=== PATIENT | male | born 1985 | race Caucasian/White ===

== ENCOUNTER 2024-10-26 22:26 | Emergency (ER) | payer BC ==
[2024-10-26] MEDS ORDERED: ASPIRIN 81 MG CHEWABLE TABLET ONE (23:05)
[2024-10-26 23:43] LABS: Anion Gap 8.5 mEq/L (5.0-15.0); BUN Blood Urea Nitrogen 9 mg/dL (7-18); Bicarbonate 29 mEq/L (21-32); Glomerular Filtration Rate 80 ml/min (=/>90); Glucose Level 95 mg/dL (74-106); Magnesium 2.2 mg/dL (1.6-2.4); Potassium 3.5 mEq/L (3.5-5.1); Sodium Level 140 mEq/L (136-145)
[2024-10-26 23:57] LABS: Absolute Basophils 0.1 K/uL (0-0.5); Absolute Eosinophils 0.3 K/uL (0-0.5); Absolute Lymphocytes (CBC) 3.5 K/uL (0.7-4.9); Absolute Monocytes 0.8 K/uL (0.1-1.3); Absolute Neutrophil 4.2 K/uL (1.8-8.0); Basophils % 0.8 % (0-1.3); Eosinophils % 3.7 % (0-4.4); Hematocrit 45.2 % (39.6-49.0); Hemoglobin 15.5 g/dL (13.6-17.9); Lymphocytes % 39.4 % (15.3-44.8); MCH 31.3 pg (27.0-35.0); MCHC 34.4 g/dL (32.0-36.0); MPV 7.3 fL (7.6-11.3); Neutrophils % 47.1 % (41.7-73.7); Nucleated RBC Absolute Count 0.1 (0-0); Nucleated Red Blood Cells % 1.5 % (0-0); Platelets 378 thou/uL (152-406); RBC Red Blood Cell Count 4.97 M/uL (4.33-5.43); Red Cell Distribution Width 13.3 % (12.1-15.2)
[2024-10-27] LABS: Troponin High Sensitivity < 3.0 pg/mL (<58.9)
--- NOTE | 2024-10-27 00:02 | RAD REPORT ---
EXAM DESCRIPTION: XR CHEST 1 VIEW CLINICAL HISTORY: Chest pain. COMPARISON: None FINDINGS: Cardiac silhouette is within normal limits. There is no focal parenchymal or pleural disease. There i s no acute osseous process visualized. IMPRESSION: No evidence of acute cardiopulmonary disease. Electronically signed by: Lowell Sanders MD 10/26/2024 11:59 PM CDT RP Transcribed Date/Time: 10/27/2024 12:09 AM
--- NOTE | 2024-10-27 00:33 | EDPHYS ---
Physician Documentation [facility] Name: Arash Kebede Age: 39 yrs Sex: Male : 1985 Arrival Date: 10/26/2024 Time: 22:26 Bed 13 Private MD: ED Physician Sam Lerner HPI: 10/26 22:47 This 39 yrs old Male presents to ER via Unassigned with complaints of Chest Pain. ms3 22:47 39-year-old male with past medical history of SVT and anxiety presents to the emergency ms3 department for left-sided chest pain that began at 8 PM. Patient rates his pain a 7/10 and describes the pain as being sharp. Patient denies nausea, vomiting. Patient endorses lightheadedness, shortness of breath, dizziness. Patient denies any alleviating or inciting factors.. Historical: - Allergies: 22:50 No Known Allergies; iw - PMHx: 22:50 SVT; iw - Immunization history:: Adult Immunizations up to date. - Infectious Disease History:: Denies. - Social history:: Smoking status: Patient denies any tobacco usage or history of. ROS: 22:47 Constitutional: Negative for fever, and chills. Abdomen/GI: Negative for abdominal ms3 pain, nausea, vomiting, diarrhea, and constipation, MS/Extremity: Negative for injury and deformity, Skin: Negative for injury, rash, and discoloration, 22:47 Cardiovascular: Positive for chest pain, 22:47 Respiratory: Positive for shortness of breath, Exam: 22:47 Constitutional: This is a well developed, well nourished patient who is awake, alert, ms3 and in no acute distress. Cardiovascular: Regular rate and rhythm with a normal S1 and S2. No gallops, murmurs, or rubs. Normal PMI, no JVD. No pulse deficits. Respiratory: Lungs have equal breath sounds bilaterally, clear to auscultation and percussion. No rales, rhonchi or wheezes noted. No increased work of breathing, no retractions or nasal flaring. Abdomen/GI: Soft, non-tender, with normal bowel sounds. No distension or tympany. No guarding or rebound. No evidence of tenderness throughout. Skin: Warm, dry with normal turgor. Normal color with no rashes, no lesions, and no evidence of cellulitis. MS/ Extremity: Pulses equal, no cyanosis. Neurovascular intact. Full, normal range of motion. 22:47 ECG was reviewed by the Attending Physician. Vital Signs: 22:50 Weight 89.81 kg; Height 5 ft. 10 in. ; iw 23:15 BP 137 / 95; Pulse 72; Resp 18; Pulse Ox 97% ; cp4 10/27 00:00 BP 144 / 99; Pulse 64; Resp 18; Pulse Ox 95% ; cp4 00:43 BP 144 / 101; Pulse 68; Resp 18; Pulse Ox 97% ; cp4 10/26 22:50 Body Mass Index 28.41 (89.81 kg, 177.8 cm) iw MDM: 10/26 22:47 Differential diagnosis: abnormal EKG, acute myocardial infarction, anxiety, coronary ms3 artery disease chest wall pain, pulmonary embolus. 22:47 Scoring Tools PERC Rule for PE Age > /= 50 No (0) HR > /= 100 No (0) O2 Sat Room Air < ms3 95% No (0) Unilateral leg swelling No (0) Hemoptysis No (0) Recent surgery or trauma </= 4 weeks ago, requiring treatment with General Anesthesia No (0) Prior PE or DVT No (0) Hormone use No (0). 22:50 Medical Screening Exam initiated ms3 10/27 00:33 HEART Score: History: Slightly Suspicious (0), ECG: Normal (0), Age: < or = 45 years ms3 (0), Risk Factors: 1 or 2 risk factors (1), [Hypertension] Troponin: < or = 1 x Normal Limit (0), Total Score = 1. Data reviewed: vital signs, nurses notes, lab test result(s), EKG, radiologic studies, and as a result, I will discharge patient. I considered the following discharge prescriptions or medication management in the emergency department Medications were administered in the Emergency Department. See MAR. Independent interpretation of the following test(s) in the Emergency Department EKG: See my EKG interpretation above. Counseling: I had a detailed discussion with the patient and/or guardian regarding the historical points, exam findings, and any diagnostic results supporting the discharge/admit diagnosis, lab results, radiology results, the need for outpatient follow up, to return to the emergency department if symptoms worsen or persist or if there are any questions or concerns that arise at home. Special discussion: Based on the patient's history, exam, and Dx evaluation, there is no indication for emergent intervention or inpatient Tx. It is understood by the patient/guardian that if the Sx's persist or worsen they need to return immediately for re-evaluation. ED course: On reevaluation patient symptoms improved, patient is alert and oriented x 4, no apparent distress, nontoxic-appearing, speaking full sentences. Heart score 1, troponin undetectable. Patient to follow-up with Dr. Hooks in 2 to 3 days. All questions were answered. Return precautions discussed include worsening symptoms, or any other concerns. 10/26 22:36 Order name: Basic Metabolic Panel; Complete Time: 00:21 ms3 10/26 22:36 Order name: CBC with Diff; Complete Time: 00:21 ms3 10/26 22:36 Order name: Magnesium; Complete Time: 00:21 ms3 10/26 22:36 Order name: Troponin HS; Complete Time: 00:21 ms3 10/26 22:36 Order name: XRAY Chest (1 view) ms3 10/26 22:36 Order name: Cardiac monitoring; Complete Time: 23:06 ms3 10/26 22:36 Order name: EKG - Nurse/Tech; Complete Time: 22:54 ms3 10/26 22:36 Order name: IV Saline Lock; Complete Time: 23:06 ms3 10/26 22:36 Order name: Labs collected and sent; Complete Time: 23:07 ms3 10/26 22:36 Order name: O2 Per Protocol; Complete Time: 23:07 ms3 10/26 22:36 Order name: O2 Sat Monitoring; Complete Time: 23:07 ms3 EC/16 22:47 Rate is 76 beats/min. Rhythm is regular. QRS Crescent is Normal. SC interval is normal. QRS ms3 interval is normal. Clinical impression: Normal ECG. Interpreted by me. Reviewed by me. Administered Medications: 23:07 Drug: Aspirin PO Chewable Tablet 324 mg PO once; 81 mg tablets x 4 Route: PO; cp4 10/27 00:43 Follow up: Response: No adverse reaction cp4 Disposition Summary: 10/27/24 00:33 Discharge Ordered Notes: Location: Home ms3 Condition: Stable ms3 Diagnosis - Chest pain, unspecified ms3 - Essential (primary) hypertension ms3 Followup: ms3 - With: Dmitriy Hooks MD - When: 2 - 3 days - Reason: Recheck today's complaints Discharge Instructions: - Discharge Summary Sheet ms3 - Nonspecific Chest Pain, Adult ms3 - Hypertension, Adult ms3 Forms: - Medication Reconciliation Form ms3 - Antibiotic Education ms3 - Prescription Opioid Use ms3 - Patient Portal Instructions ms3 - Leadership Thank You Letter ms3 - Work release form cp4 Signatures: Dispatcher [employer] EDMS Arelis Carroll RN RN iw Sam Lerner, DO DO ms3 Charmaine Borrego cp4 Corrections: (The following items were deleted from the chart) 10/26 22:36 22:36 BASIC METABOLIC PANEL+C.LAB.BRZ ordered. EDMS EDMS 22:36 22:36 CBC+H.LAB.BRZ ordered. EDMS EDMS 22:36 22:36 MAGNESIUM+C.LAB.BRZ ordered. EDMS EDMS 22:36 22:36 Troponin High Sensitivity+C.LAB.BRZ ordered. EDMS EDMS 22:36 22:36 Chest Single View+RAD.RAD.BRZ ordered. EDMS EDMS
--- NOTE | 2024-10-27 00:33 | ER ---
Nurse's Notes [facility] Name: Arash Kebede Age: 39 yrs Sex: Male : 1985 Arrival Date: 10/26/2024 Time: 22:26 Bed 13 Private MD: Diagnosis: Chest pain, unspecified;Essential (primary) hypertension Presentation: 10/26 22:48 Chief complaint: Patient states: left sided chest pain started at 8 pm, hx of SVT, he iw felt dizzy like he was going to pass out but does not feel like his heart is racing. Coronavirus screen: At this time, the client does not indicate any symptoms associated with coronavirus-19. Ebola Screen: No symptoms or risks identified at this time. Initial Sepsis Screen: Does the patient meet any 2 criteria? No. Patient's initial sepsis screen is negative. Does the patient have a suspected source of infection? No. Patient's initial sepsis screen is negative. Risk Assessment: Do you want to hurt yourself or someone else? Patient reports no desire to harm self or others. Onset of symptoms was October 26, 2024. 22:48 Method Of Arrival: Ambulatory iw 22:48 Acuity: THERESA 2 iw Historical: - Allergies: 22:50 No Known Allergies; iw - PMHx: 22:50 SVT; iw - Immunization history:: Adult Immunizations up to date. - Infectious Disease History:: Denies. - Social history:: Smoking status: Patient denies any tobacco usage or history of. Screenin:48 [facility] ED Fall Risk Assessment (Adult) History of falling in the last 3 months, cp4 including since admission No falls in past 3 months (0 pts) Confusion or Disorientation No (0 pts) Intoxicated or Sedated No (0 pts) Impaired Gait No (0 pts) Mobility Assist Device Used No (0 pt) Altered Elimination No (0 pt) Score/Fall Risk Level 0 - 2 = Low Risk Oriented to surroundings, Maintained a safe environment, Assessed \T\ reinforced patient's understanding of fall precautions, Hourly rounding (assess needs \T\ fall precautionary measures) done. Abuse screen: Denies threats or abuse. Denies injuries from another. Nutritional screening: No deficits noted. Tuberculosis screening: No symptoms or risk factors identified. Assessment: 23:48 General: Appears in no apparent distress. uncomfortable, Behavior is calm, cooperative, cp4 appropriate for age. Pain: Complains of pain in chest Pain does not radiate. Pain currently is 4 out of 10 on a pain scale. Pain began 3 hours ago. Neuro: Level of Consciousness is awake, alert, obeys commands, Oriented to person, place, time, situation. Cardiovascular: Patient's skin is warm and dry. Rhythm is sinus rhythm. Respiratory: Airway is patent Respiratory effort is even, unlabored. GI: No signs and/or symptoms were reported involving the gastrointestinal system. : No signs and/or symptoms were reported regarding the genitourinary system. EENT: No signs and/or symptoms were reported regarding the EENT system. Derm: No signs and/or symptoms reported regarding the dermatologic system. Musculoskeletal: No signs and/or symptoms reported regarding the musculoskeletal system. Vital Signs: 22:50 Weight 89.81 kg; Height 5 ft. 10 in. ; iw 23:15 BP 137 / 95; Pulse 72; Resp 18; Pulse Ox 97% ; cp4 10/27 00:00 BP 144 / 99; Pulse 64; Resp 18; Pulse Ox 95% ; cp4 00:43 BP 144 / 101; Pulse 68; Resp 18; Pulse Ox 97% ; cp4 10/26 22:50 Body Mass Index 28.41 (89.81 kg, 177.8 cm) iw ED Course: 10/26 22:29 Patient arrived in ED. gm2 22:36 Sam Lerner DO is Attending Physician. ms3 22:48 Triage completed. iw 22:55 XRAY Chest (1 view) In Process Unspecified. EDMS 23:00 Charmaine Borrego is Primary Nurse. cp4 23:48 Placed in gown. Bed in low position. Call light in reach. Side rails up X2. Client cp4 placed on continuous cardiac and pulse oximetry monitoring. NIBP monitoring applied. monitoring tech on. Pulse ox on. NIBP on. 23:48 No provider procedures requiring assistance completed. Inserted saline lock: 22 gauge cp4 in left antecubital area, using aseptic technique. Blood collected. Flushed with 10 mL NS. Patient maintains SpO2 saturation greater than 95% on room air. 10/27 00:33 Dmitriy Hooks MD is Referral Physician. ms3 00:46 Provided Education on: chest pain and hypertension. cp4 00:46 intact, bleeding controlled, No redness/swelling at site. Pressure dressing applied. cp4 00:47 Arm band placed on right wrist. Patient placed in waiting room. cp4 Administered Medications: 10/26 23:07 Drug: Aspirin PO Chewable Tablet 324 mg PO once; 81 mg tablets x 4 Route: PO; cp4 10/27 00:43 Follow up: Response: No adverse reaction cp4 Medication: 10/26 23:48 VIS not applicable for this client. cp4 Outcome: 10/27 00:33 Discharge ordered by . ms3 00:46 Discharged to home ambulatory, cp4 00:46 Condition: stable 00:46 Discharge instructions given to patient, family, Instructed on discharge instructions, follow up and referral plans. Demonstrated understanding of instructions, follow-up care, 00:48 Patient left the ED. cp4 Signatures: Dispatcher [employer] EDArelis Hernandez RN RN iw Sims, Marcus, DO DO ms3 Charmaine Borrego cp4 Nataliya Estes 2
[2024-10-27 01:00] VITALS: BP 144/101; O2SAT 97
== END 2024-10-27 00:48 | disposition home or self-care (01) ==
LOC: ER 22:26
DX: R07.9 Chest pain, unspecified (principal); I10 Essential (primary) hypertension
CPT/HCPCS: 36415; 71045; 80048; 83735; 84484; 85025; 93005; 99284